=== PATIENT | female | born 1950 | race American Indian/Alaskan Native ===

== ENCOUNTER 2016-10-18 08:01 | Outpatient (CLI) | payer MEDICARE, MEDICAID ==
--- NOTE | 2016-10-18 09:11 | Fluoroscopy Report ---
MODIFIED BARIUM SWALLOW History: Dysphagia. Findings: Fluoroscopy was provided by the radiologist for speech therapy to assess the swallowing mechanism. Please refer to the formal report by speech therapy. Impression: Successful modified barium swallow.
== END 2016-10-18 08:02 | disposition home or self-care (01) ==
LOC: PT 08:01
PROVIDERS: ATTEND Internal Medicine
DX: R13.10 Dysphagia, unspecified (principal)
CPT/HCPCS: 74230; 92611; G8996; G8997; G8998

== ENCOUNTER 2018-11-20 13:41 | Emergency (ER) | payer MEDICARE ==
--- NOTE | 2018-11-20 13:49 | Emergency Department Report ---
Blank Doc - Documentation Documentation: This is a 68-year-old female that presents with URI symptoms. Code sepsis initiated. Patient brought back to the ED. This initial assessment/diagnostic orders/clinical plan/treatment(s) is/are subject to change based on patient's health status, clinical progression and re-assessment by fellow clinical providers in the ED. Further treatment and workup at subsequent clinical providers discretion. Patient/guardians urged not to elope from the ED as their condition may be serious if not clinically assessed and managed. Initial orders include: 1- labs 2- EKG 3- CXR 4- fluids
[2018-11-20] MEDS ORDERED: NACL 0.9% 1000 ML IV ONE (13:50)
[2018-11-20 14:09] LABS: Basophils % (Auto) 0.6 % (0.0-1.8); Eosinophils % (Auto) 0.5 % (0.0-4.3); Hematocrit 36.2 % (30.3-42.9); Hemoglobin 11.5 gm/dl (10.1-14.3); Lymphocytes # (Auto) 0.8 K/mm3 (1.2-5.4); Lymphocytes % (Auto) 13.1 % (13.4-35.0); Mean Corpuscular HGB Conc 32 % (30-34); Mean Corpuscular Volume 96 fl (79-97); Monocytes # (Auto) 0.7 K/mm3 (0.0-0.8); Monocytes % (Auto) 11.7 % (0.0-7.3); Platelet Count 332 K/mm3 (140-440); Red Blood Count 3.78 M/mm3 (3.65-5.03); Red Cell Distribution Width 16.4 % (13.2-15.2)
[2018-11-20 14:24] LABS: Alanine Aminotransferase 21 units/L (7-56); Albumin 3.9 g/dL (3.9-5); BUN/Creatinine Ratio 9; Blood Urea Nitrogen 8 mg/dL (7-17); Calcium 8.8 mg/dL (8.4-10.2); Hemolysis Index 18
--- NOTE | 2018-11-20 14:35 | Emergency Department Report ---
- General Chief Complaint: Fever Stated Complaint: FAINTED/CHEST PAIN Time Seen by Provider: 11/20/18 13:45 Source: patient, family Mode of arrival: Wheelchair Limitations: No Limitations - History of Present Illness Initial Comments: 68-year-old female presents to ED with URI symptoms and syncopal episode. Patient reports fever, vomiting, diarrhea, cough, headache x2 days. Reports episode. Patient reports that she did receive a flu shot this season. MD Complaint: fever, cough, sore throat, nasal congestion -: days(s) (3) Severity: moderate Consistency: constant Improves With: nothing Worsens With: nothing Associated Symptoms: fever, headache, nasal congestion, cough, vomiting, diarrhea, ear pain Treatments Prior to Arrival: "cold medicine" - Related Data Home Medications Medication Instructions Recorded Confirmed Last Taken Aspirin/Dipyridamole [Aggrenox] 1 cap PO BID 05/05/15 05/05/15 Unknown Atenolol [Tenormin] 100 mg PO DAILY 05/05/15 05/05/15 Unknown Baclofen [Lioresal] 10 mg PO BID 05/05/15 05/05/15 Unknown Insulin Aspart [NovoLOG Flexpen] 6 units SQ AC 05/05/15 05/05/15 Unknown Insulin Glargine [Lantus VIAL] 25 units SQ QHS 05/05/15 05/05/15 Unknown Lisinopril [Zestril TAB] 40 mg PO BID 05/05/15 05/05/15 Unknown Omeprazole [PriLOSEC] 40 mg PO QDAY 05/05/15 05/05/15 Unknown Pravastatin Sodium [Pravastatin] 10 mg PO DAILY 05/05/15 05/05/15 Unknown amLODIPine [Norvasc] 10 mg PO DAILY 05/05/15 05/05/15 Unknown hydroCHLOROthiazide [HCTZ] 25 mg PO QDAY 05/05/15 05/05/15 Unknown metFORMIN [Glucophage] 500 mg PO BID 05/05/15 05/05/15 Unknown Previous Rx's Medication Instructions Recorded Last Taken Type Benzonatate [Tessalon Perles] 100 mg PO Q8HR PRN #20 capsule 11/20/18 Unknown Rx Ondansetron [Zofran Odt] 4 mg PO Q8HR PRN #20 tab.rapdis 03/11/19 Unknown Rx Oseltamivir [Tamiflu] 75 mg PO BID 5 Days #10 cap 11/20/18 Unknown Rx traMADol [Ultram] 50 mg PO Q6HR PRN #7 tablet 11/20/18 Unknown Rx Allergies Allergy/AdvReac Type Severity Reaction Status Date / Time aspirin AdvReac Nausea Unverified 11/20/18 14:14 ED Review of Systems ROS: Stated complaint: FAINTED/CHEST PAIN Other details as noted in HPI Comment: All other systems reviewed and negative Constitutional: chills, fever ENT: ear pain, throat pain Respiratory: cough Gastrointestinal: vomiting, diarrhea Neurological: headache, other (reports dizziness, syncopal episode) ED Past Medical Hx - Past Medical History Hx Hypertension: Yes Hx CVA: Yes (2008) Hx Diabetes: Yes Additional medical history: Thyroid cancer - Surgical History Hx Appendectomy: Yes Additional Surgical History: hysterectomy, thyroidectomy, rotator cuff - Social History Smoking Status: Never Smoker Substance Use Type: None - Medications Home Medications: Home Medications Medication Instructions Recorded Confirmed Last Taken Type Aspirin/Dipyridamole [Aggrenox] 1 cap PO BID 05/05/15 05/05/15 Unknown History Atenolol [Tenormin] 100 mg PO DAILY 05/05/15 05/05/15 Unknown History Baclofen [Lioresal] 10 mg PO BID 05/05/15 05/05/15 Unknown History Insulin Aspart [NovoLOG Flexpen] 6 units SQ AC 05/05/15 05/05/15 Unknown History Insulin Glargine [Lantus VIAL] 25 units SQ QHS 05/05/15 05/05/15 Unknown History Lisinopril [Zestril TAB] 40 mg PO BID 05/05/15 05/05/15 Unknown History Omeprazole [PriLOSEC] 40 mg PO QDAY 05/05/15 05/05/15 Unknown History Pravastatin Sodium [Pravastatin] 10 mg PO DAILY 05/05/15 05/05/15 Unknown History amLODIPine [Norvasc] 10 mg PO DAILY 05/05/15 05/05/15 Unknown History hydroCHLOROthiazide [HCTZ] 25 mg PO QDAY 05/05/15 05/05/15 Unknown History metFORMIN [Glucophage] 500 mg PO BID 05/05/15 05/05/15 Unknown History Benzonatate [Tessalon Perles] 100 mg PO Q8HR PRN #20 capsule 11/20/18 Unknown Rx Ondansetron [Zofran Odt] 4 mg PO Q8HR PRN #20 tab.rapdis 11/20/18 Unknown Rx Oseltamivir [Tamiflu] 75 mg PO BID 5 Days #10 cap 11/20/18 Unknown Rx traMADol [Ultram] 50 mg PO Q6HR PRN #7 tablet 11/20/18 Unknown Rx ED Physical Exam - General Limitations: No Limitations General appearance: alert, in no apparent distress - Head Head exam: Present: atraumatic, normocephalic - Eye Eye exam: Present: normal appearance - ENT ENT exam: Present: mucous membranes moist - Neck Neck exam: Present: normal inspection - Respiratory Respiratory exam: Present: normal lung sounds bilaterally. Absent: respiratory distress - Cardiovascular Cardiovascular Exam: Present: regular rate, normal rhythm - GI/Abdominal GI/Abdominal exam: Present: soft. Absent: distended, tenderness - Extremities Exam Extremities exam: Present: normal inspection - Neurological Exam Neurological exam: Present: alert, oriented X3, CN II-XII intact. Absent: motor sensory deficit - Psychiatric Psychiatric exam: Present: normal affect, normal mood - Skin Skin exam: Present: warm, dry, intact, normal color. Absent: rash ED Course Vital Signs 11/20/18 11/20/18 11/20/18 13:45 14:12 14:15 Temperature 101.2 F H 99.3 F Pulse Rate 87 91 H 90 Respiratory 16 17 33 H Rate Blood Pressure 156/77 Blood Pressure 149/75 156/77 [Left] O2 Sat by Pulse 93 97 98 Oximetry 11/20/18 11/20/18 11/20/18 14:31 14:45 15:01 Temperature Pulse Rate 92 H 85 91 H Respiratory 25 H 34 H 22 Rate Blood Pressure 146/70 159/85 149/75 Blood Pressure [Left] O2 Sat by Pulse 97 96 98 Oximetry 11/20/18 11/20/18 11/20/18 15:15 15:33 15:37 Temperature 100.3 F H Pulse Rate 89 87 Respiratory 20 23 Rate Blood Pressure 160/81 156/78 Blood Pressure [Left] O2 Sat by Pulse 97 97 Oximetry 11/20/18 11/20/18 11/20/18 15:45 16:01 16:15 Temperature Pulse Rate 82 84 85 Respiratory 34 H 31 H 29 H Rate Blood Pressure 146/68 156/76 157/70 Blood Pressure [Left] O2 Sat by Pulse 97 97 97 Oximetry ED Medical Decision Making - Lab Data Result diagrams: 11/20/18 14:03 11/20/18 14:03 - EKG Data -: EKG Interpreted by Me EKG shows normal: sinus rhythm, axis, intervals, QRS complexes, ST-T waves Rate: normal - EKG Data Interpretation: no acute changes - Radiology Data Radiology results: report reviewed, image reviewed - Medical Decision Making 68-year-old female positive for influenza A. Patient reports URI symptoms and also vomiting, diarrhea. This likely cause dehydration and limits her syncopal episode today. EKG unremarkable, troponin normal. IV fluids given here in ED, Tylenol given for fever. Patient does report receiving influenza vaccination, however with a prescription for Tamiflu since she says her symptoms began 2 days ago. Labs unremarkable, lactic acid normal. Chest x-ray normal. Will discharge at this time. Outpatient follow-up advised, return precautions given. - Differential Diagnosis influenza, URI, pneumonia, dehydration Critical care attestation.: If time is entered above; I have spent that time in minutes in the direct care of this critically ill patient, excluding procedure time. ED Disposition Clinical Impression: Influenza A, Dehydration, Syncope Disposition: - TO HOME OR SELFCARE Is pt being admited?: No Condition: Stable Instructions: Dehydration (ED), Syncope (ED), Influenza (ED) Prescriptions: Oseltamivir [Tamiflu] 75 mg PO BID 5 Days #10 cap Benzonatate [Tessalon Perles] 100 mg PO Q8HR PRN #20 capsule PRN Reason: Cough traMADol [Ultram] 50 mg PO Q6HR PRN #7 tablet PRN Reason: Pain Ondansetron [Zofran Odt] 4 mg PO Q8HR PRN #20 tab.rapdis PRN Reason: Vomiting Referrals: PRIMARY CARE,MD [Primary Care Provider] - 3-5 Days Time of Disposition: 16:06
--- NOTE | 2018-11-20 14:43 | XRay Report ---
AP CHEST: HISTORY: Sepsis AP view of the chest demonstrates a normal mediastinal and cardiac contour with clear lungs and normal bony and soft tissue structures. IMPRESSION: Unremarkable AP chest.
[2018-11-20] MEDS ORDERED: TYLENOL PO ONE (15:38)
[2018-11-20 15:53] LABS: Bacteria,Urine 4+ /HPF (Negative); Bilirubin,Urine NEG (Negative); Blood,Urine NEG (Negative); Color,Urine Yellow (Yellow); Mucus,Urine FEW /HPF; Protein,Urine <15 mg/dL mg/dL (Negative); Urobilinogen,Urine < 2.0 mg/dL (<2.0)
[2018-11-20 16:21] VITALS: BP 157/70
== END 2018-11-20 16:42 | disposition home or self-care (01) ==
LOC: ED 13:41
DX: J10.1 Influenza due to other identified influenza virus with other respiratory manifestations (principal); E86.0 Dehydration; R55 Syncope and collapse; I10 Essential (primary) hypertension; E11.9 Type 2 diabetes mellitus without complications; Z90.710 Acquired absence of both cervix and uterus; Z90.49 Acquired absence of other specified parts of digestive tract; Z79.899 Other long term (current) drug therapy; Z88.6 Allergy status to analgesic agent; Z85.850 Personal history of malignant neoplasm of thyroid
CPT/HCPCS: 36415; 71045; 80053; 81001; 82140; 84484; 85025; 87040; 87086; 87400; 93005; 93010; 96360; 99284; J7030